=== PATIENT | female | born 1990 | race Caucasian/White ===

== ENCOUNTER → 2016-10-19 | Outpatient (CLI) | payer BC ==
[~2016-10-19] MED LIST: ACHD5005 PO; DCS100C PO; FERR-57 PO; IBUP-1773 PO; NFR150C PO
--- NOTE | 2016-10-19 18:00 | Diagnostic Imaging Report ---
INDICATION: . TECHNIQUE: Multiple real-time grayscale images were obtained over the gravid uterus. COMPARISON: None Number: One Presentation: Varies Placenta: Fundal, no placenta previa. Amniotic Fluid: Within normal limits Heart Rate: 153 bpm FINDINGS: The anatomic survey is limited. In particular, the four-chamber heart is not well visualized. However, intracranial contents are unremarkable. The spine is not well visualized and evaluated. The kidneys, urinary bladder, and three-vessel cord are present. The cervical length is 4.1 cm. A 3.2 x 1.6 x 3.5 cm ovoid hypoechoic lesion is seen within the anterior aspect of the uterus. This appears to persist throughout the examination. biometrics are symmetric. They are consistent with an estimated gestational age of 19 weeks and 6 days. Therefore, there is an estimated due date based on this examination of March 09, 2017. Findings are consistent with clinical dating. Biometrical measurements are as follows: Biparietal 4.44 cm, age 19 weeks 3 days. Head circumference 18.15 cm, age 20 weeks 4 days. Abdominal circumference 15.45 cm, age 20 weeks 5 days. Femur length 2.81 cm, age 18 weeks 5 days. Sonographic estimate age: 19 weeks 6 days. Sonographic estimated date of delivery: 03/09/2017. Estimated Weight: 312 gm (+/- 48 gm). LMP percentile: 81%. heart rate: 153 beats per minute. number: 1 of 1. IMPRESSION: Single live intrauterine at approximately 19 weeks and 6 days, with an GENESIS of March 09, 2017. These are consistent with clinical dates. No gross abnormalities are seen at this time. However, evaluation is limited. In particular, the spine, four-chamber heart, and cord insertion were not well seen secondary to positioning. Persistent hypoechoic lesion within the anterior aspect of the uterus, likely related to a fibroid. Contraction felt less likely as this appeared to persist throughout the exam. Dictated by: Dictated on workstation # [id number]
== END ==
LOC: RAD 16:48
PROVIDERS: ATTEND Obstetrics & Gynecology
DX: Z36 Encounter for antenatal screening of mother (principal); Z3A.19 19 weeks gestation of pregnancy
CPT/HCPCS: 76805

== ENCOUNTER 2016-11-27 18:40 | Outpatient (CLI) | payer BC ==
[~2016-11-27] VITALS: Ht 160 cm; Wt 104.4 kg
[2016-11-27 19:05] VITALS: BP 173/96
[2016-11-27 19:08] VITALS: BP 157/86
[2016-11-27 19:30] VITALS: BP 131/75
[2016-11-27 19:37] LABS: BILIRUBIN,URINE NEGATIVE (NEGATIVE); KETONES,URINE NEGATIVE (NEGATIVE); LEUKOCYTE ESTERASE ,URINE 1+ (NEGATIVE); NITRITE,URINE NEGATIVE (NEGATIVE); PH,URINE 8 (5-9); PROTEIN,URINE NEGATIVE (NEGATIVE); UROBILINOGEN,URINE NORMAL (NORMAL)
[2016-11-27] MEDS ORDERED: PREN-142 PO (19:42)
[2016-11-27 19:45] VITALS: BP 129/73
[2016-11-27] MEDS ORDERED: CEPH-507 PO (20:05)
--- NOTE | 2016-11-29 12:00 | Physician Query-Final Dx ---
GEORGI WILSON 11/29/16 12:00pm: Clinic Account Progress/Dx Physician Query: Please give diagnosis Date of Service Nov 27, 2016 at 18:40 OLEG RINCON DO 12/02/16 11:54am: Clinic Account Progress/Dx DIAGNOSIS: Diagnosis 25 week IUP Pelvic pain GEORGI WILSON Nov 29, 2016 12:00 pm OLEG RINCON DO Dec 02, 2016 11:54 am
== END 2016-11-27 20:16 | disposition home or self-care (01) ==
LOC: WSo 18:40 → LDRP 18:41 → WSo 20:16
PROVIDERS: ATTEND Obstetrics & Gynecology
DX: O99.89 Other specified diseases and conditions complicating pregnancy, childbirth and the puerperium (principal); R10.2 Pelvic and perineal pain; Z3A.25 25 weeks gestation of pregnancy
CPT/HCPCS: 81000; 87088; 99213

== ENCOUNTER → 2016-12-08 | Outpatient (CLI) | payer BC ==
[~2016-12-08] MED LIST changes: +CEPH-507 PO; +DOCU100C37 PO; +HYDR-3812 PO; +IBUP-1780 PO; +PREN-142 PO
--- NOTE | 2016-12-08 18:03 | Diagnostic Imaging Report ---
INDICATION: Evaluate heart and spine. TECHNIQUE: Multiple real-time grayscale images were obtained over the gravid uterus. COMPARISON is made to a study of 10/19/2016. FINDINGS: Limited examination reveals a mata intrauterine fetus in the cephalic presentation with a normal amount of amniotic fluid. The placenta is fundal without evidence of previa. cardiac activity is present with a rate 155 beats per minute. On the current examination, heart and spine reveal no abnormality. IMPRESSION: Reassessment of cardiac and spinal anatomy reveals no evidence of abnormality. Dictated by: Dictated on workstation # [id number]
== END ==
LOC: RAD 16:29
PROVIDERS: ATTEND Obstetrics & Gynecology
DX: Z36 Encounter for antenatal screening of mother (principal); Z3A.00 Weeks of gestation of pregnancy not specified
CPT/HCPCS: 76816

== ENCOUNTER 2017-02-23 10:22 | Outpatient (CLI) | payer BC ==
[~2017-02-23] VITALS: Ht 165.1 cm; Wt 112.0 kg
[~2017-02-23 10:22] MED LIST changes: -DOCU100C37 PO; -HYDR-3812 PO; -IBUP-1780 PO
[2017-02-23 10:47] VITALS: BP 124/82
== END 2017-02-23 10:50 | disposition home or self-care (01) ==
LOC: PREOP 10:22
PROVIDERS: ATTEND Obstetrics & Gynecology
DX: Z01.818 Encounter for other preprocedural examination (principal); O34.219 Maternal care for unspecified type scar from previous cesarean delivery; Z3A.00 Weeks of gestation of pregnancy not specified
CPT/HCPCS: 87081

== ENCOUNTER 2017-02-28 06:00 | Inpatient (IN) | payer BC ==
[~2017-02-28] VITALS: Ht 165.1 cm; Wt 111.6 kg
[~2017-02-28 06:00] MED LIST changes: +CITRIC ACID/SOB CIT (BICITRA) 30 ML UDC ONE; +FAMOTIDINE 20MG/2ML IV (PEPCID) ONE; +LACTATED RINGERS 2,000 ML IV ONE; +METOCLOPRAMIDE INJ 10 MG/2 ML (REGLAN) ONE; +ceFAZolin 2 GM/50 ML NS 50 ML ONE
[2017-02-28] MEDS ORDERED: LACTATED RINGERS 1,000 ML IV PRN (06:10)
--- OUTSIDE RECORDS SUMMARY | 2017-02-28 06:10 | XMS REPORT ---
Author Author KENNETH RICHARDSON [facility] eClinicalWorks Address Unknown Phone Unavailable Care Team Providers Care Thermal Intelligence Analyst Name Role Phone KENNETH RICHARDSON CP Unavailable Allergies, Adverse Reactions, Alerts Substance Reaction Event Type N.K.D.A. Info Not Available Non Drug Allergy Problems Problem Type Condition Code Onset Dates Condition Status Problem Unspecified breast screening V76.10 Active Problem General counseling for prescription of oral contraceptives V25.01 Active Problem Right sided abdominal pain R10.9 Active Problem Diffuse cystic mastopathy 610.1 Active Assessment Right sided abdominal pain R10.9 Active Problem Screening examination for venereal disease V74.5 Active Problem Screening for malignant neoplasm of the cervix V76.2 Active Medications Medication Code System Code Instructions Start Date End Date Status Dosage Multi Vitamin Daily [facility] [address] not defined Ortho Tri-Cyclen (28) [facility] [address]-68 0.18/0.215/0.25 mg-35 mcg (28) Dec 21, 2012 take 1 tablet by Oral route 1 time per day Procedures Procedure Coding System Code Date Office Visit, Est Pt., Level 3 CPT-4 68537 Nov 25, 2015 Vital Signs Date/Time: Nov 25, 2015 Cardiac Monitoring Heart Rate 76 bpm Weight 205.4 lbs Height 65 in BMI 34.18 Index Blood Pressure Diastolic 82 mmHg Blood Pressure Systolic 130 mmHg Results No Known Results Summary Purpose eClinicalWorks Submission
[2017-02-28 06:15] VITALS: BP 136/92
[2017-02-28] MEDS ORDERED: ceFAZolin 2 GM/50 ML NS 50 ML IV ONE (06:15)
[2017-02-28] MEDS ORDERED: FAMOTIDINE 20MG/2ML IV (PEPCID) IV ONE (06:15)
[2017-02-28] MEDS ORDERED: CITRIC ACID/SOB CIT (BICITRA) 30 ML UDC PO ONE (06:15)
[2017-02-28] MEDS ORDERED: METOCLOPRAMIDE INJ 10 MG/2 ML (REGLAN) IV ONE (06:15)
[2017-02-28] MEDS ORDERED: CATHETER FLUSH 10 ML SYR IV PRN (06:15)
[2017-02-28 06:35] LABS: BASOPHILS % (AUTO) 0 % (0-10); EOSINOPHILS # (AUTO) 0.1 10^3/uL (0.0-0.3); EOSINOPHILS % (AUTO) 1 % (0-10); LYMPHOCYTES # (AUTO) 2.5 X 10^3 (1.0-4.0); LYMPHOCYTES % (AUTO) 35 % (12-44); MEAN CORPUSCULAR HEMOGLOBIN 25 PG (25-34); MEAN CORPUSCULAR HGB CONC 32 G/DL (32-36); MEAN CORPUSCULAR VOLUME 77 FL (80-99); MEAN PLATELET VOLUME 10.1 FL (7.4-10.4); MONOCYTES # (AUTO) 0.5 X 10^3 (0.0-1.0); MONOCYTES % (AUTO) 8 % (0-12); NEUTROPHILS # (AUTO) 3.9 X 10^3 (1.8-7.8); NEUTROPHILS % (AUTO) 56 % (42-75); PLATELET COUNT 278 10^3/uL (130-400); RED CELL DISTRIBUTION WIDTH 16.4 % (10.0-14.5); WHITE BLOOD COUNT 7.1 10^3/uL (4.3-11.0)
[2017-02-28] MEDS ORDERED: fentaNYL INJECTION 100 MCG/2 ML AMP ONE (07:01)
[2017-02-28] MEDS ORDERED: morphine PF (DURAMORPH) 10 MG/10 ML AMP ONE (07:01)
[2017-02-28] MEDS ORDERED: INFLUENZA TRIvalent 2017-2018 0.5 ML/45 MCG SYR IM ONE (07:15)
--- NOTE | 2017-02-28 07:18 | History & Physical-OB ---
OB - Chief Complaint & HPI Date/Time Date of Admission: Date of Admission: Feb 28, 2017 at 6:00 am Time Seen by Provider: 07:10 Chief Complaint/History OB-Reason for Admission/Chief: Section Hx : 1 Hx Para: 0 Expected Date of Delivery: Mar 14, 2017 Gestational Age in Weeks: 38 Indication for : other (Hx of Extensive uterine myomectomy) Admission Nurse Assessment Rev: Yes History of Labs A pos Antibody neg RNI RPR NR HBsAg NR HIV NR GC neg GBS neg Allergies and Home Medications Allergies Coded Allergies: No Known Drug Allergies (Unverified , 11/27/16) Home Medications Vit No.124/Iron/FA 1 Each Tablet, 1 EACH PO DAILY, (Reported) OB - History Hx of Present Care: Yes Ultrasounds: Normal mid trimester US Obstetrical Complications: Other Medical Complications: None Delivery History Hx Blood Disorders: Yes (ANEMIA) Adverse Rxn to Tranfusion: No Patient Past Medical History Uterine myomectomy, hx of blood loss anemia Social History/Family History Recent Infectious Disease Expo: No Alcohol Use: Denies Use Recreational Drug Use: No Immunizations Tetanus Booster (TDap): Less than 5yrs OB - Admission Exam Physical Exam Vitals: Vital Signs 02/28/17 06:15 Temp 98.2 Pulse 95 Resp 18 B/P (MAP) 136/92 HEENT: NCAT Heart: Rhythm Normal Lungs: Clear Abdomen: Gravid Extremities: Normal Reflexes: Normal Heart Rate: 130's Accelerations: Accelerations Present Decelerations: No Decelerations Short Term Variability: Present Him Specialist Variability: Average (6-25) Contractions on Admission: >10 Minutes Apart Intensity: Mild Labs Laboratory Tests Test 02/28/17 06:20 Range/Units White Blood Count 7.1 4.3-11.0 10^3/uL Red Blood Count 4.80 4.35-5.85 10^6/uL Hemoglobin 11.9 11.5-16.0 G/DL Hematocrit 37 35-52 % Mean Corpuscular Volume 77 L 80-99 FL Mean Corpuscular Hemoglobin 25 25-34 PG Mean Corpuscular Hemoglobin Concent 32 32-36 G/DL Red Cell Distribution Width 16.4 H 10.0-14.5 % Platelet Count 278 130-400 10^3/uL Mean Platelet Volume 10.1 7.4-10.4 FL Neutrophils (%) (Auto) 56 42-75 % Lymphocytes (%) (Auto) 35 12-44 % Monocytes (%) (Auto) 8 0-12 % Eosinophils (%) (Auto) 1 0-10 % Basophils (%) (Auto) 0 0-10 % Neutrophils # (Auto) 3.9 1.8-7.8 X 10^3 Lymphocytes # (Auto) 2.5 1.0-4.0 X 10^3 Monocytes # (Auto) 0.5 0.0-1.0 X 10^3 Eosinophils # (Auto) 0.1 0.0-0.3 10^3/uL Basophils # (Auto) 0.0 0.0-0.1 10^3/uL OB - Assessment/Plan/Diagnosis Assessment Assessment: section Plan Plan: Section Discharge Diagnosis Diagnosis: 26 yo @ 38 weeks Hx of extensive uterine myomectomy BMI >35 GBS neg OLEG RINCON DO Feb 28, 2017 7:18 am
[2017-02-28] MEDS ORDERED: OXYTOCIN/NORMAL SALINE 500 ML IV SCH (07:28)
[2017-02-28] MEDS ORDERED: TETANUS,DIPTH,PERTUSS P/F (BOOSTRIX) 0.5 ML VIAL IM SCH (07:30)
[2017-02-28] MEDS ORDERED: ONDANSETRON 4 MG/2 ML (SDV) Z0FRAN IVP PRN (07:30)
[2017-02-28] MEDS ORDERED: MEASLES,MUMPS,RUBELLA 1 EA INJ SC SCH (07:30)
[2017-02-28] MEDS ORDERED: HYDROcodone/APAP 5 MG/325 MG (LORTAB) TAB PO PRN (07:30)
[2017-02-28] MEDS ORDERED: HYDROmorphone (DILAUDID) 2 MG/ML VIAL IVP PRN (07:30)
[2017-02-28] MEDS: KETOROLAC 30 MG/ML VIAL IVP SCH ×3 (08:15→19:06)
[2017-02-28] MEDS ORDERED: ONDANSETRON 4 MG/2 ML (SDV) Z0FRAN ONE (08:15)
[2017-02-28] MEDS ORDERED: PHENYLEPHRINE 100 MCG/ML 10 ML (ANESTHESIA) SYR ONE (08:15)
[2017-02-28] MEDS ORDERED: OXYTOCIN/NORMAL SALINE 1,000 ML IV ONE (08:15)
[2017-02-28] MEDS ORDERED: KETOROLAC 30 MG/ML VIAL ONE (08:15)
[2017-02-28] MEDS ORDERED: HYDR-3812 PO (08:31)
[2017-02-28] MEDS ORDERED: DOCU100C37 PO (08:31)
[2017-02-28] MEDS ORDERED: IBUP-1780 PO (08:31)
--- NOTE | 2017-02-28 08:33 | Discharge Inst-Women's Service ---
Discharge Inst-Women's Serv Depart Medication/Instructions New, Converted or Re-Newed RX: RX on Chart Consults/Follow Up Additional Follow Up: Yes Orders/Referrals Dr. Rincon in 7-10 days and in 6 weeks Activity Activity: Activity as Tolerated Driving Instructions: No Driving for 1 Week NO SMOKING: NO SMOKING Nothing Inside Vagina: No Douching, No [place], No Tampons Diet Discharge Diet: No Restrictions Symptoms to Report to : Bleeding Excessive, Pain Increased, Fever Over 101 Degrees F, Vaginal Bleeding Increase, Questions/Concerns For Any Problems or Questions: Contact Your Physician Skin/Wound Care Infection Signs and Symptoms: Increased Redness, Foul Odor of Wound, Increased Drainage, Skin Itchy or Has a Rash, Increased Swelling, Temperature Above 101 F Operative Area Clean and Dry: Keep Incision Clean/Dry Stitches/Kellee/Dermabond: Dermabond, Care of Stitches Bathing Instructions: Shower (x 2 weeks) OLEG RINCON DO Feb 28, 2017 8:33 am
[2017-02-28] MEDS: DOCUSATE SODIUM 100 MG (COLACE) CAP PO SCH (10:55)
[2017-02-28 10:57] VITALS: BP 124/79
[2017-02-28 13:49] VITALS: BP 131/86
[2017-02-28] MEDS ORDERED: CATHETER FLUSH 10 ML SYR IV SCH (14:00)
--- NOTE | 2017-02-28 14:21 | OPERATIVE REPORT ---
DATE OF SERVICE: PREOPERATIVE DIAGNOSES: 1. A 26-year-old G1, P0 at 38 weeks. 2. Previous extensive uterine myomectomy. 3. BMI of 35. POSTOPERATIVE DIAGNOSES: 1. A 26-year-old G1, P0 at 38 weeks. 2. Previous extensive uterine myomectomy. 3. BMI of 35. PROCEDURE: Primary low transverse section with uterine myomectomy and lysis of adhesions. SURGEON: Derek Rincon D.O. CONTINUUM OF CARE MANAGER: LELIA Lazaro. ANESTHESIA: Spinal. EBL: 1100 mL. FLUIDS: 1700 mL of lactate Ringer solution. URINE: 200 mL clear at the end of the procedure. FINDINGS: Is a live male weighing 7 pounds 14 ounces, Apgars of 8 and 9. A grossly abnormal size uterus with multiple fibroids, intramural submucosal and subserosal as well as pedunculated dense adhesions of the vesicouterine peritoneum to the lower uterine segment and the anterior uterine wall. SPECIMEN SENT: Was placenta and submucosal and fundal pedunculated uterine fibroid. INDICATION FOR PROCEDURE: This is a 26-year-old female is a patient several years ago that I had previously performed an extensive uterine myomectomy due to chronic blood loss anemia. She was counseled at that time about need for a if should be achieved in her lifetime. The patient did achieve without difficulty and was counseled throughout the about labor precautions, uterine rupture, and need for primary . Risks of the procedure were discussed with the patient throughout her and in the preoperative area including risk of bleeding, infection, risk of damage to surrounding structures including but not limited to bowel, bladder, ureter, kidneys, loss of fertility and/or sterilization as well as need for blood transfusion, risk from anesthesia and even . After everything was discussed with the patient in detail, consent was obtained preoperatively and the patient was taken to the operating room. OPERATIVE ROOM IN DETAIL: Once in the operating room, spinal anesthesia was found to be adequate, placed in supine position with a leftward tilt, prepped and draped in normal sterile fashion. A Pfannenstiel skin incision was made through the previously existing incision using a knife and carried to underlying fascia using Bovie cautery. The fascial incision extended laterally using Bovie cautery. The superior aspect of the fascial incision was then grasped with Leila clamps, tented up and dissected off the underlying rectus muscles. The inferior aspect of the fascial incision was then grasped with Leila clamps and the upper dissected off the rectus muscle. Rectus muscle dissected down the midline using Manning scissors and this allows me to enter the peritoneum. I have to do so extremely cephalad to avoid dense lower uterine segment adhesions. Once the peritoneal access was achieved, I stretched the incision and have to take down some anterior uterine wall adhesions that are both dense and filmy. Using Metzenbaum scissors, I did this with care to stay away from the bladder. Once these were taken down, I then placed the Daniel ring retractor and the peritoneal incision which offers excellent lateral sidewall retraction. I made an incision through the lower uterine segment using knife and carried down until I am able to see membranes at which point I extended the uterine incision laterally and superiorly using bandage scissors. Clear fluid was noted at time of rupture membranes which happens iatrogenically and extension of the uterine incision. The infant was found in the vertex presentation. I elevated the infant's head up to incision which is occiput posterior at the time of elevation. Due to the fibroids in the uterus and the size of the patient I am unable to deliver the 's head with gentle fundal pressure. I therefore called for a Kiwi suction extractor. I placed it on the midsagittal suture line of the infant, applied 500 mmHg and gently extended the infant's head to the incision, which offers itself up to delivery at that point with retraction of the suction which point I released the suction and bulb suction of the infant's nose and oropharynx. I then delivered the anterior, posterior shoulders. Infant is then brought to the operative field where the cord was doubly clamped and cut and handed off to waiting nonpediatric team. Cord blood was collected, 3-vessel cord with intact placenta was delivered spontaneously thereafter. IV Pitocin was initiated to facilitate uterine contraction. Uterine fundus became firmer with bimanual massage. The uterus was exteriorized and cleared of all endometrial clots and debris. There is a submucosal fibroid that was peeled off the endometrial wall. There is not an extensive amount of bleeding from its insertion site; therefore I leave it be. I then proceeded with closing the uterine incision using 0 Vicryl suture in running Lock fashion. A second layer of 0 Vicryl suture was placed to imbricate the incision. A third layer of 0 Monocryl was placed to reapproximate the thickness of the uterine wall after which there was no active bleeding noted from any dissection planes. I examined the uterus and there was a pedunculated fibroid at the uterine fundus that is inhibiting me from placing the uterus back within the pelvis. I placed an 0 Vicryl suture around the stalk of the pedunculated fibroid ligating it and then amputated using monopolar after which there was no bleeding noted from its removal site. This was also sent as a pedunculated fundal fibroid. I am able to place the uterus back within the pelvis. The pelvis was copiously irrigated using normal saline. Once again no active bleeding noted from my dissection planes, but there is some oozing from areas of adhesion takedown. I placed a Surgicel over these planes of oozing. I placed Interceed over the lower uterine segment up to the middle anterior uterus to prevent postoperative adhesion formation. I then closed the peritoneum using 3-0 Vicryl in a running fashion. The rectus muscle reapproximated using 3-0 Vicryl suture in interrupted fashion. The fascia reapproximated with 0 Vicryl suture in running fashion. The subcutaneous tissue was reapproximated using 3-0 plain. Interrupted subcutaneous stitches and skin reapproximated using 4-0 Monocryl running subcuticular. Dermabond was applied to the incision and a sterile dressing with adhesive white tape. Two grams Ancef given preoperatively for infection prophylaxis. The patient tolerated the procedure well and sent to recovery in stable condition. Lap and sponge count was correct at the end of the procedures, instruments counts correct as well. Job ID: [id number] DocumentID: [id number] Dictated Date: 02/28/2017 08:40:18 Scientific Helper Date: 02/28/2017 14:20:23 Dictated By: DEREK RINCON DO
[2017-02-28 17:45] VITALS: BP 129/83
[2017-02-28] MEDS: LACTATED RINGERS 1,000 ML IV SCH (17:52)
[2017-02-28 21:30] VITALS: BP 129/72
[2017-03-01] MEDS: KETOROLAC 30 MG/ML VIAL IVP SCH (01:15)
[2017-03-01] MEDS: DOCUSATE SODIUM 100 MG (COLACE) CAP PO SCH ×3 (01:15→20:06)
[2017-03-01] MEDS: LACTATED RINGERS 1,000 ML IV SCH (01:16)
[2017-03-01 01:20] VITALS: BP 124/78
[2017-03-01 05:05] VITALS: BP 127/81
[2017-03-01] MEDS ORDERED: IBUPROFEN 600 MG (MOTRIN) TAB PO ONE (06:30)
[2017-03-01] MEDS ORDERED: IBUPROFEN 800 MG (MOTRIN) TAB PO ONE (06:32)
[2017-03-01] MEDS: IBUPROFEN 800 MG (MOTRIN) TAB PO SCH ×3 (06:42→20:06)
[2017-03-01 06:49] LABS: BASOPHILS % (AUTO) 0 % (0-10); EOSINOPHILS % (AUTO) 0 % (0-10); LYMPHOCYTES # (AUTO) 1.6 X 10^3 (1.0-4.0); LYMPHOCYTES % (AUTO) 15 % (12-44); MEAN CORPUSCULAR HEMOGLOBIN 25 PG (25-34); MEAN CORPUSCULAR HGB CONC 32 G/DL (32-36); MEAN CORPUSCULAR VOLUME 78 FL (80-99); MEAN PLATELET VOLUME 10.1 FL (7.4-10.4); MONOCYTES # (AUTO) 0.8 X 10^3 (0.0-1.0); MONOCYTES % (AUTO) 7 % (0-12); NEUTROPHILS # (AUTO) 8.3 X 10^3 (1.8-7.8); NEUTROPHILS % (AUTO) 77 % (42-75); PLATELET COUNT 202 10^3/uL (130-400); RED BLOOD COUNT 3.39 10^6/uL (4.35-5.85); RED CELL DISTRIBUTION WIDTH 16.4 % (10.0-14.5); WHITE BLOOD COUNT 10.7 10^3/uL (4.3-11.0)
--- NOTE | 2017-03-01 08:20 | Progress Note-Standard ---
Standard Progress Note Progress Notes/Assess & Plan Date Seen by Provider: Mar 01, 2017 Time Seen by Provider: 08:12 Progress/Assessment & Plan Patient doing well no concerns voiced. Pain well controlled, lochia light, ambulating and yet to void since catheter removed this morning. Vital Sign - Last 24 Hours 02/28/17 02/28/17 02/28/17 02/28/17 10:57 13:49 17:45 21:30 Temp 98.2 97.7 97.8 97.7 Pulse 79 79 96 94 Resp 18 18 18 18 B/P (MAP) 124/79 131/86 129/83 129/72 Pulse Ox 95 99 96 96 O2 Delivery Room Air Room Air Room Air Room Air 03/01/17 03/01/17 01:20 05:05 Temp 99.6 99.3 Pulse 98 105 Resp 18 18 B/P (MAP) 124/78 127/81 Pulse Ox 95 96 O2 Delivery Room Air Room Air Incision: c/d/i Laboratory Tests Test 03/01/17 06:34 Range/Units White Blood Count 10.7 4.3-11.0 10^3/uL Red Blood Count 3.39 L 4.35-5.85 10^6/uL Hemoglobin 8.4 #L 11.5-16.0 G/DL Hematocrit 26 L 35-52 % Mean Corpuscular Volume 78 L 80-99 FL Mean Corpuscular Hemoglobin 25 25-34 PG Mean Corpuscular Hemoglobin Concent 32 32-36 G/DL Red Cell Distribution Width 16.4 H 10.0-14.5 % Platelet Count 202 130-400 10^3/uL Mean Platelet Volume 10.1 7.4-10.4 FL Neutrophils (%) (Auto) 77 H 42-75 % Lymphocytes (%) (Auto) 15 12-44 % Monocytes (%) (Auto) 7 0-12 % Eosinophils (%) (Auto) 0 0-10 % Basophils (%) (Auto) 0 0-10 % Neutrophils # (Auto) 8.3 H 1.8-7.8 X 10^3 Lymphocytes # (Auto) 1.6 1.0-4.0 X 10^3 Monocytes # (Auto) 0.8 0.0-1.0 X 10^3 Eosinophils # (Auto) 0.0 0.0-0.3 10^3/uL Basophils # (Auto) 0.0 0.0-0.1 10^3/uL Diagnosis: POD PLTCS with myomectomy Acute blood loss anemia P: Replace iron Encourage ambulation Continue routine PO care Anticipate dc tomorrow OLEG RINCON DO Mar 01, 2017 08:20
[2017-03-01 09:22] VITALS: BP 123/80
[2017-03-01] MEDS: FERROUS SULF 325 MG (IRON) TAB PO SCH ×2 (09:26→18:37)
--- NOTE | 2017-03-01 14:32 | Anesthesia-Regional Post-Op ---
Regional Patient Condition Mental Status: Alert, Oriented x3 Circulation: Same as Pre-Op Headache: Absent Sensation: Full Recovery Motor Block: Absent Post Op Complications Complications None Follow Up Care/Instructions Patient Instructions None needed. Anesthesia/Patient Condition Patient is doing well, no complaints, stable vital signs, no apparent adverse anesthesia problems. No complications reported per nursing. CHUYITA THOMASON CRNA Mar 01, 2017 14:32
[2017-03-01 16:11] VITALS: BP 120/76
[2017-03-01 20:00] VITALS: BP 139/88
[2017-03-01 22:00] VITALS: BP 139/88
[2017-03-02] MEDS: IBUPROFEN 800 MG (MOTRIN) TAB PO SCH ×2 (02:15→07:53)
[2017-03-02 04:03] VITALS: BP 117/81
[2017-03-02] MEDS: FERROUS SULF 325 MG (IRON) TAB PO SCH (05:57)
[2017-03-02 07:43] VITALS: BP 122/79
--- NOTE | 2017-03-02 10:26 | Progress Note-Standard ---
Standard Progress Note Progress Notes/Assess & Plan Date Seen by Provider: Mar 02, 2017 Time Seen by Provider: 08:15 Progress/Assessment & Plan Patient doing well no concerns voiced. Pain well controlled, lochia light, ambulating and voiding freely. Vital Sign - Last 24 Hours 03/01/17 03/01/17 03/02/17 03/02/17 16:11 22:00 04:03 07:43 Temp 99.3 97.2 98.2 98.8 Pulse 103 119 88 106 Resp 18 18 17 18 B/P (MAP) 120/76 139/88 117/81 122/79 Pulse Ox 97 98 99 O2 Delivery Room Air Room Air Room Air Incision: c/d/i Diagnosis: POD 2 PLTCS with myomectomy Acute blood loss anemia P: Replace iron Encourage ambulation Continue routine PO care Anticipate dc today OLEG RINCON DO Mar 02, 2017 10:26 am
== END 2017-03-02 11:45 | disposition home or self-care (01) | DRG 765 ==
LOC: LDRP 06:00
PROVIDERS: ADMIT Obstetrics & Gynecology; ATTEND Obstetrics & Gynecology
PROC: 0UB90ZZ Excision of Uterus, Open Approach (ICD-10-PCS; 2017-02-28)
PROC: 10D00Z1 Extraction of Products of Conception, Low, Open Approach (ICD-10-PCS; principal; 2017-02-28 07:22)
DX: O34.29 Maternal care due to uterine scar from other previous surgery (principal); O34.13 Maternal care for benign tumor of corpus uteri, third trimester; D25.1 Intramural leiomyoma of uterus; D25.0 Submucous leiomyoma of uterus; D25.2 Subserosal leiomyoma of uterus; O90.81 Anemia of the puerperium; D62 Acute posthemorrhagic anemia; Z68.35 Body mass index [BMI] 35.0-35.9, adult; Z3A.38 38 weeks gestation of pregnancy; Z37.0 Single live birth
CPT/HCPCS: 36415; 85025; 86850; 86900; 86901; 88305; 88307; 94664

== ENCOUNTER → 2017-09-12 | Outpatient (CLI) | payer BC, OTHER ==
[~2017-09-12] MED LIST changes: -CITRIC ACID/SOB CIT (BICITRA) 30 ML UDC ONE; +DOCU100C37 PO; -FAMOTIDINE 20MG/2ML IV (PEPCID) ONE; +IBUP-1780 PO; -LACTATED RINGERS 2,000 ML IV ONE; -METOCLOPRAMIDE INJ 10 MG/2 ML (REGLAN) ONE; -ceFAZolin 2 GM/50 ML NS 50 ML ONE
--- NOTE | 2017-09-12 11:37 | Diagnostic Imaging Report ---
Indication: Pelvic pain. Technique: Multiple real-time grayscale images were obtained of the pelvis in various projections both transabdominal and endovaginally. Findings: Use measures 9.4 x 5 x 4.5 cm. This fibroid in the right aspect of the uterus measuring 2.8 x 2.6 cm. There is a fibroid on the left measuring 5.3 x 4.2 x 4.5 cm. Endometrial thickness is 7 mm. Both ovaries are normal in size and morphology and demonstrate normal blood flow. There are no adnexal masses. No free pelvic fluid. Impression: Fibroid uterus, otherwise unremarkable pelvic ultrasound. Dictated by: Dictated on workstation # [id number]
== END ==
LOC: RAD 09:54
PROVIDERS: ATTEND Obstetrics & Gynecology
DX: D25.1 Intramural leiomyoma of uterus (principal)
CPT/HCPCS: 76830; 76856

== ENCOUNTER → 2018-11-22 | Outpatient (CLI) | payer BC ==
--- NOTE | 2018-11-22 12:13 | Diagnostic Imaging Report ---
PROCEDURE: US Non-ob pelvis comp/trans. TECHNIQUE: Multiple realtime grayscale images were obtained of the pelvis in various projections endovaginally. Transabdominal imaging was also performed. INDICATION: Uterine fibroids, followup. COMPARISON: Correlation is made with prior ultrasound from 09/12/2017. FINDINGS: The uterus measures 10.0 x 8.8 x 5.2 cm. Endometrium is 13 mm in thickness. Left uterine fibroid measures 3.8 x 3.8 x 3.3 cm compared with 5.3 x 4.2 x 4.5 cm. Right fibroid measures 1.8 x 1.5 x 1.8 cm compared with 2.6 x 2.8 cm. The right ovary was not visualized. Left ovary measures 5.8 x 4.8 x 3.5 cm and contains a complex cyst measuring 3.4 x 2.1 x 3.7 cm. There is blood flow to the left ovary. There is a small amount of free fluid adjacent to left ovary. IMPRESSION: 1. Overall mild decrease in size of uterine fibroids when compared with prior ultrasound from 09/12/2017. 2. 3.7 cm hemorrhagic left ovarian cyst. Dictated by: Dictated on workstation # [id number]
== END ==
LOC: RAD 09:34
PROVIDERS: ATTEND Obstetrics & Gynecology
DX: D25.9 Leiomyoma of uterus, unspecified (principal); N83.202 Unspecified ovarian cyst, left side
CPT/HCPCS: 76830; 76856

== ENCOUNTER → 2019-03-19 | Outpatient (CLI) | payer BC ==
--- NOTE | 2019-03-19 12:42 | Diagnostic Imaging Report ---
PROCEDURE: US Non-ob pelvis comp/trans. TECHNIQUE: Multiple realtime grayscale images were obtained of the pelvis in various projections endovaginally. Transabdominal imaging was also performed. INDICATION: Ovarian cyst. COMPARISON: Comparison is made with prior examination of 11/22/2018. FINDINGS: The uterus measures 10.1 x 8.9 x 5.7 cm. Endometrial thickness is 1.3 cm. There is some fluid within the endometrium. There is a fibroid in the right uterus measuring 1.9 cm. There is fibroid in the left uterus measuring 3.7 cm. Both ovaries are normal in size and morphology and demonstrate normal blood flow. There is a 2 cm left ovarian cyst. There are no other adnexal masses. There is no free pelvic fluid. IMPRESSION: Fibroid uterus. Thickening of the endometrium presumably reflecting the proliferative phase of the patient's menstrual cycle. Recommend clinical correlation. 2 cm left ovarian cyst. Dictated by: Dictated on workstation # [id number]
== END ==
LOC: RAD 09:53
PROVIDERS: ATTEND Obstetrics & Gynecology
DX: N83.292 Other ovarian cyst, left side (principal)
CPT/HCPCS: 76830; 76856

== ENCOUNTER → 2019-07-07 | Outpatient (CLI) | payer BC | LOC: LAB 14:00 | PROVIDERS: ATTEND Obstetrics & Gynecology | DX: Z36.89 Encounter for other specified antenatal screening (principal) | CPT/HCPCS: 36415; 84702 ==

== ENCOUNTER → 2019-10-31 | Outpatient (CLI) | payer BC ==
--- NOTE | 2019-10-31 11:04 | Diagnostic Imaging Report ---
INDICATION: Anatomy scan. TECHNIQUE: Multiple real-time grayscale images were obtained over the gravid uterus. COMPARISON: None FINDINGS: There is a single live fetus in a breech presentation. heart rate was recorded at 167 bpm. Placenta is posterior. Amniotic fluid index is 14.2 cm. survey is limited due to position and maternal body habitus. kidneys, bladder, posterior fossa and cord and cord insertion are limited. stomach is unremarkable. There is a four-chamber heart. spine is unremarkable. Biometrical measurements are as follows: Biparietal 4.99 cm, age 21 weeks 1 days. Head circumference 18.27 cm, age 20 weeks 5 days. Abdominal circumference 17.25 cm, age 22 weeks 2 days. Femur length 3.36 cm, age 20 weeks 4 days. Sonographic estimate age: 21 weeks 2 days. Sonographic estimated date of delivery: 03/10/2020. Estimated Weight: 418 gm (+/- 61 gm). LMP percentile: 80%. heart rate: 167 beats per minute. number: 1 of 1. IMPRESSION: Single live IUP 21 weeks 2 days gestational age with estimated date of confinement sonographically of 03/10/2020. survey is limited, as described. Follow-up could be performed. Dictated by: Dictated on workstation # [id number]
== END ==
LOC: RAD 09:24
PROVIDERS: ATTEND Obstetrics & Gynecology
DX: Z34.03 Encounter for supervision of normal first pregnancy, third trimester (principal); Z3A.21 21 weeks gestation of pregnancy
CPT/HCPCS: 76805

== ENCOUNTER → 2019-12-29 | Outpatient (CLI) | payer BC | LOC: LAB 08:54 | PROVIDERS: ATTEND Obstetrics & Gynecology | DX: O99.810 Abnormal glucose complicating pregnancy (principal); Z3A.00 Weeks of gestation of pregnancy not specified | CPT/HCPCS: 36415; 82951; 82952; 82962 ==

== ENCOUNTER 2020-02-06 15:30 | Outpatient (CLI) | payer BC ==
[~2020-02-06] VITALS: Ht 165 cm; Wt 117.8 kg
--- NOTE | 2020-02-06 15:30 | NUR ---
DIAMOND PATTERSON presented to unit via AMB from HOME, accompanied by SPOUSE, with c/o ABDOMINAL TIGHTNESS. DIAMOND PATTERSON weighed, gowned, voided, and to bed. 1552 EF and TOCO applied, VS taken. DIAMOND PATTERSON oriented to bed controls, call light, TV, heat, and A/C controls.
[2020-02-06 16:01] VITALS: BP 147/76
[2020-02-06 16:30] VITALS: BP 147/76
--- NOTE | 2020-02-06 16:30 | NUR ---
AMNIO SWAB NEGATIVE. SVE BY SALMA ARTEAGA. UNABLE TO REACH POSTERIOR CERVIX.
[2020-02-06 16:45] VITALS: BP 130/80
[2020-02-06 16:50] VITALS: BP 147/76
--- NOTE | 2020-02-06 16:53 | NUR ---
DR. BANUELOS NOTIFIED OF PT'S ARRIVAL AND C/O CTXS OFF AND ON SINCE 1000 TODAY. INFORMED OF FHR TRACING, REACTIVE NST, OCC VARIABLES, AND 2 CTXS NOTED 21 MINUTES APART. ORDER TO DISMISS.
[2020-02-06 17:15] VITALS: BP 147/76
--- NOTE | 2020-02-06 17:15 | NUR ---
DISCHARGE INSTRUCTIONS REVIEWED WITH COPY TO PT. STATES UNDERSTANDING OF ALL INSTRUCTIONS AND NEED TO F/U SCHEDULED AND NEEDED. DISMISSED AMB FROM WS IN STABLE CONDITION ACC BY SPOUSE.
--- NOTE | 2020-02-07 08:19 | Physician Query-Final Dx ---
TORI MOSER 02/07/20 0819: Clinic Account Progress/Dx Physician Query: Please give diagnosis Please include # weeks gestation Date of Service Feb 06, 2020 at 15:30 CRYSTAL BANUELOS MD 02/07/20 0924: Clinic Account Progress/Dx DIAGNOSIS: Diagnosis 34 weeks gestation false labor TORI MOSER Feb 07, 2020 08:19 CRYSTAL BANUELOS MD Feb 07, 2020 09:24
== END 2020-02-06 17:15 | disposition home or self-care (01) ==
LOC: WSo 15:30 → LDRP 15:41 → WSo 17:15
PROVIDERS: ATTEND Obstetrics & Gynecology
DX: O47.03 False labor before 37 completed weeks of gestation, third trimester (principal); Z3A.34 34 weeks gestation of pregnancy
CPT/HCPCS: 99213

== ENCOUNTER 2020-02-27 05:32 | Outpatient (RCR) | payer BC ==
[~2020-02-27] VITALS: Ht 165.1 cm; Wt 118.2 kg
[2020-02-29] MEDS ORDERED: DCS100C PO (08:26)
[2020-02-29] MEDS ORDERED: IBUP-844 PO (08:26)
[2020-02-29] MEDS ORDERED: ACHD5005 PO (08:26)
== END 2020-02-27 09:38 | disposition home or self-care (01) ==
LOC: PREOP 05:32
PROVIDERS: ATTEND Obstetrics & Gynecology
DX: Z01.812 Encounter for preprocedural laboratory examination (principal); Z20.828 Contact with and (suspected) exposure to other viral communicable diseases
CPT/HCPCS: 87635

== ENCOUNTER 2020-02-29 01:55 | Inpatient (IN) | payer BC ==
[~2020-02-29] VITALS: Ht 165.1 cm; Wt 117.8 kg
[2020-02-29] VITALS (11 sets, daily range): BP systolic 127–138; BP diastolic 66–101
[2020-02-29] MEDS ORDERED: LACTATED RINGERS 1,000 ML IV PRN (06:30)
[2020-02-29] MEDS ORDERED: CATHETER FLUSH 10 ML SYR IV PRN (06:30)
[2020-02-29] MEDS ORDERED: METOCLOPRAMIDE INJ 10 MG/2 ML (REGLAN) IV ONE (06:30)
[2020-02-29] MEDS ORDERED: CITRIC ACID/SOB CIT (BICITRA) 30 ML UDC PO ONE (06:30)
[2020-02-29] MEDS ORDERED: ceFAZolin 2 GM IV Premixed 50 ML IV ONE (06:45)
[2020-02-29 07:12] LABS: BASOPHILS # (AUTO) 0.1 10^3/uL (0.0-0.1); BASOPHILS % (AUTO) 1 % (0-10); EOSINOPHILS # (AUTO) 0.1 10^3/uL (0.0-0.3); EOSINOPHILS % (AUTO) 1 % (0-10); HEMATOCRIT 38 % (35-52); HEMOGLOBIN 12.2 g/dL (11.5-16.0); LYMPHOCYTES # (AUTO) 1.9 10^3/uL (1.0-4.0); LYMPHOCYTES % (AUTO) 26 % (12-44); MEAN CORPUSCULAR HEMOGLOBIN 25 pg (25-34); MEAN CORPUSCULAR HGB CONC 32 g/dL (32-36); MEAN CORPUSCULAR VOLUME 78 fL (80-99); MONOCYTES # (AUTO) 0.5 10^3/uL (0.0-1.0); MONOCYTES % (AUTO) 6 % (0-12); NEUTROPHILS # (AUTO) 4.9 10^3/uL (1.8-7.8); NEUTROPHILS % (AUTO) 66 % (42-75); PLATELET COUNT 286 10^3/uL (130-400); WHITE BLOOD COUNT 7.4 10^3/uL (4.3-11.0)
[2020-02-29] MEDS ORDERED: FAMOTIDINE 20MG/2ML IV (PEPCID) ONE (07:25)
[2020-02-29] MEDS: LACTATED RINGERS 1,000 ML IV PRN ×2 (07:38→09:17)
[2020-02-29] MEDS ORDERED: OXYTOCIN PRE-MIX DRIP 500 ML IV SCH (08:13)
--- NOTE | 2020-02-29 08:13 | History & Physical-OB ---
OB - Chief Complaint & HPI Date/Time Date of Admission: Date of Admission: Feb 29, 2020 at 06:15 Date seen by a Provider: Feb 29, 2020 Time Seen by a Provider: 08:05 Chief Complaint/History OB-Reason for Admission/Chief: Section Hx : 3 Hx Para: 1 Expected Date of Delivery: Mar 14, 2020 Gestational Age in Weeks: 38 Gestational Age in Days: 0 Indication for : desires repeat Other reason for admission: Repeat , secondary to extensive transfundal surgery Admission Nurse Assessment Rev: Yes Allergies and Home Medications Allergies Coded Allergies: No Known Drug Allergies (Unverified , 11/27/16) Home Medications Vit No.124/Iron/FA 1 Each Tablet, 1 EACH PO DAILY, (Reported) Patient Home Medication List Home Medication List Reviewed: Yes OB - History Hx of Present Care: Yes Ultrasounds: Normal mid trimester US Obstetrical Complications: None Medical Complications: None Delivery History Hx Blood Disorders: Yes (ANEMIA) Adverse Rxn to Tranfusion: No Patient Past Medical History Uterine myomectomy, hx of blood loss anemia Social History/Family History 2nd Hand Smoke Exposure: Yes Immunizations Tetanus Booster (TDap): Less than 5yrs OB - Admission Exam Physical Exam Vitals: Vital Signs 02/29/20 06:40 Pulse 86 Resp 18 B/P (MAP) 127/84 (98) Pulse Ox 98 O2 Delivery Room Air HEENT: NCAT Heart: Rhythm Normal Lungs: Clear Abdomen: Gravid Extremities: Normal Reflexes: Normal Heart Rate: 130's Accelerations: Accelerations Present Decelerations: No Decelerations Short Term Variability: Present Intermediate Variability: Average (6-25) Contractions on Admission: 6-10 Minutes Apart Intensity: Mild Labs Laboratory Tests Test 02/29/20 06:45 Range/Units White Blood Count 7.4 4.3-11.0 10^3/uL Red Blood Count 4.80 3.80-5.11 10^6/uL Hemoglobin 12.2 11.5-16.0 g/dL Hematocrit 38 35-52 % Mean Corpuscular Volume 78 L 80-99 fL Mean Corpuscular Hemoglobin 25 25-34 pg Mean Corpuscular Hemoglobin Concent 32 32-36 g/dL Red Cell Distribution Width 17.9 H 10.0-14.5 % Platelet Count 286 130-400 10^3/uL Mean Platelet Volume 10.0 9.0-12.2 fL Immature Granulocyte % (Auto) 0 % Neutrophils (%) (Auto) 66 42-75 % Lymphocytes (%) (Auto) 26 12-44 % Monocytes (%) (Auto) 6 0-12 % Eosinophils (%) (Auto) 1 0-10 % Basophils (%) (Auto) 1 0-10 % Neutrophils # (Auto) 4.9 1.8-7.8 10^3/uL Lymphocytes # (Auto) 1.9 1.0-4.0 10^3/uL Monocytes # (Auto) 0.5 0.0-1.0 10^3/uL Eosinophils # (Auto) 0.1 0.0-0.3 10^3/uL Basophils # (Auto) 0.1 0.0-0.1 10^3/uL Immature Granulocyte # (Auto) 0.0 0.0-0.1 10^3/uL OB - Assessment/Plan/Diagnosis Assessment Assessment: section Admission Dx 29 yo @ 38 weeks Previous Hx of extensive uterine myomectomy GBS neg Admission Status: Inpatient Order (span 2 midnights) Reason for Inpatient Admission: Repeat Plan Plan: Section OLEG RINCON DO Feb 29, 2020 08:13
[2020-02-29] MEDS ORDERED: MEASLES,MUMPS,RUBELLA 1 EA INJ SC SCH (08:15)
[2020-02-29] MEDS ORDERED: TETANUS,DIPTH,PERTUSS P/F (BOOSTRIX) 0.5 ML VIAL IM SCH (08:15)
[2020-02-29] MEDS ORDERED: ONDANSETRON 4 MG/2 ML (SDV) Z0FRAN IVP PRN (08:15)
--- NOTE | 2020-02-29 08:18 | Discharge Inst-Women's Service ---
Discharge Inst-Women's Serv Depart Medication/Instructions New, Converted or Re-Newed RX: RX on Chart Final Diagnosis POD 2 RLTCS Problems Reviewed?: Yes Consults/Follow Up Additional Follow Up: Yes Orders/Referrals Dr. Hassan/Анна in 7-10 days, and in 6 weeks Activity Activity: Activity as Tolerated Driving Instructions: No Driving for 1 Week NO SMOKING: NO SMOKING Nothing Inside Vagina: No Douching, No [place], No Tampons Diet Discharge Diet: No Restrictions Symptoms to Report to : Bleeding Excessive, Pain Increased, Fever Over 101 Degrees F, Vaginal Bleeding Increase, Questions/Concerns For Any Problems or Questions: Contact Your Physician Skin/Wound Care Infection Signs and Symptoms: Increased Redness, Foul Odor of Wound, Increased Drainage, Skin Itchy or Has a Rash, Increased Swelling, Temperature Above 101 F Operative Area Clean and Dry: Keep Incision Clean/Dry Stitches/Yeso/Dermabond: Dermabond, Care of Stitches Bathing Instructions: OLEG Chavez DO Feb 29, 2020 08:18
[2020-02-29] MEDS ORDERED: ACHD5005 PO (08:26)
[2020-02-29] MEDS ORDERED: IBUP-844 PO (08:26)
[2020-02-29] MEDS ORDERED: DCS100C PO (08:26)
[2020-02-29] MEDS ORDERED: OXYTOCIN PRE-MIX DRIP 1,000 ML IV ONE (08:43)
[2020-02-29] MEDS ORDERED: ceFAZolin 2 GM IV Premixed 50 ML ONE (08:43)
[2020-02-29] MEDS ORDERED: fentaNYL INJECTION 100 MCG/2 ML AMP ONE (08:43)
[2020-02-29] MEDS ORDERED: ONDANSETRON 4 MG/2 ML (SDV) Z0FRAN ONE (09:25)
[2020-02-29] MEDS ORDERED: BUPIVACAINE 0.5% 30 ML (SENSORCAINE) VIAL ONE (09:45)
[2020-02-29] MEDS ORDERED: PHENYLEPHRINE 100 MCG/ML 10 ML (ANESTHESIA) SYR ONE (09:49)
--- NOTE | 2020-02-29 11:35 | NUR ---
Received from [facility] following repeat . Rates pain 0. Scant vaginal lochia. Fundus firm. u/1. Report from Verónica Degroot RN
[2020-02-29] MEDS: KETOROLAC 30 MG/ML VIAL IV SCH ×2 (12:10→17:55)
[2020-02-29] MEDS: METOCLOPRAMIDE 10 MG (REGLAN) TAB PO SCH ×2 (12:14→17:55)
[2020-02-29] MEDS ORDERED: CATHETER FLUSH 10 ML SYR IV SCH (14:00)
--- NOTE | 2020-02-29 14:30 | NUR ---
Pad changed with moderate rubra lochia. Marta care done.
[2020-02-29] MEDS: HYDROcodone/APAP 5 MG/325 MG (LORTAB) TAB PO PRN ×2 (15:23→19:57)
--- NOTE | 2020-02-29 18:04 | OPERATIVE REPORT ---
DATE OF SERVICE: PREOPERATIVE DIAGNOSES: 1. A 29-year-old G3, P1 at 38 weeks gestation. 2. Previous section. 3. History of extensive transfundal surgery and multiple myomectomy. POSTOPERATIVE DIAGNOSES: 1. A 29-year-old G3, P1 at 38 weeks gestation. 2. Previous section. 3. History of extensive transfundal surgery and multiple myomectomy. PROCEDURE: Repeat low transverse section. SURGEON: Derek Hassan DO SAMPLE SEWER: Анна Hughes DNP, who was necessary for manipulation and retraction throughout the procedure. ANESTHESIA: Spinal. ESTIMATED BLOOD LOSS: 500 mL. URINE OUTPUT: 250 mL clear at the end of the procedure. FLUIDS: 1800 mL lactated Ringer's solution. FINDINGS: A live female weighing 7 pounds 4 ounces, Apgars of 8 and 9. Grossly normal appearing bilateral fallopian tubes and ovaries. Multiple fibroids, too many to count of the uterus, some pedunculated, some subserosal. There are some intramural that are encountered with the uterine incision and some are submucosal as palpated on intrauterine palpation. SPECIMEN SENT: Intramural fibroid from incision line. INDICATIONS FOR PROCEDURE: This 29-year-old female is a patient who had sought care in my office. Her care was uncomplicated with the exception of multiple fibroid uterus. She made it to 38 weeks, at which point we planned for 38-week delivery due to her history of multiple uterine surgeries in the past. Risk of repeat was reviewed with the patient in detail. She was already well aware of the risk as she had been previously counseled with her first , so all of her questions were limited. We obtained the consent in the preoperative area, the patient was then taken to the operating room. OPERATIVE REPORT IN DETAIL: Once in the operating room, spinal analgesia was found to be adequate, placed in supine position with leftward tilt, prepped and draped in normal sterile fashion. A timeout was performed and anesthesia was tested. I then proceeded with making a Pfannenstiel skin incision to the previously existing scar using knife and carried it down to the underlying fascia using Bovie cautery. The fascial incision extended laterally using Bovie cautery. Superior aspect of the fascial incision was then grasped with Leila clamps, tented up and dissected off the underlying rectus muscles. The inferior aspect of the fascial incision was then grasped with Leila clamps, tented up and dissected off the underlying rectus muscles. Rectus muscle was then dissected down the midline using sharp dissection, which exposed the peritoneum, which I entered bluntly and extended using blunt traction. I then placed an Daniel ring retractor within the peritoneal incision, which offers excellent lateral sidewall retraction. I then identified the lower uterine segment, which was found to be thinned out and make a low transverse incision to the vesicouterine peritoneum and bluntly dissected off the lower uterine segment. I proceeded with myotomy until membranes were visualized, at which point I extended the uterine incision laterally and superiorly using bandage scissors. Amniotomy was then performed using Allis clamp. Clear fluid was noted within it. With gentle fundal pressure, the infant's head was elevated up the incision where it delivered through the incision. The nares and oropharynx were then bulb suctioned and nuchal cord was reduced x1. Anterior and posterior shoulders were delivered. The was then brought on to the operative field with cord doubly clamped and cut and was handed off to waiting nurses in attendance. Cord blood was collected, 3-vessel cord with intact placenta was delivered spontaneously thereafter. IV Pitocin was initiated to facilitate uterine contraction. Uterine fundus confirmed with bimanual massage. The uterus was then exteriorized and cleared of all endometrial clots and debris. I then proceeded with closing the uterine incision using 0 Vicryl suture in a running locked fashion. Second layer of imbricating 0 Monocryl was placed. Excellent hemostasis was noted after doing this. I then placed the uterus back within the pelvis. At the time of the uterine closure, I identified the fibroid, which was taken off of the uterine incision line and sent. I removed the uterine incision line fibroid. Once the uterus back within the pelvis, I copiously irrigated the pelvis using normal saline. There was no active bleeding noted from any of my dissection planes. I placed Interceed antiadhesive over my low transverse incision removing the Daniel ring retractor and then proceeded with closing the peritoneum using 3-0 Vicryl suture in running fashion. The rectus muscles were reapproximated using 3-0 Vicryl suture in interrupted fashion. The fascia was reapproximated using 0 Vicryl suture in running fashion. The subcutaneous tissue was reapproximated using 3-0 plain interrupted subcutaneous stitch and skin reapproximated using 4-0 Monocryl in a running subcuticular. Dermabond was applied to incision and sterile dressing with adhesive white tape. The patient tolerated the procedure well and was taken to recovery area in stable condition. Lap and sponge count was correct at the end of the procedure. Instrument counts correct as well. Job ID: [id number] DocumentID: [id number] Dictated Date: 02/29/2020 10:37:53 Technology Director Date: 02/29/2020 18:03:20 Dictated By: DO JANIE ZAVALA
--- NOTE | 2020-02-29 19:57 | NUR ---
Nurse at pt. bedside. Pt. states that she is about to get up to use the restroom and walk the hallways. Asks for pain meds at this time. Pain medication given and vitals taken. Pt. assessment complete. Pt. has no other questions or concerns.
[2020-02-29] MEDS: DOCUSATE SODIUM 100 MG (COLACE) CAP PO SCH (21:19)
[2020-03-01 00:10] VITALS: BP 133/85
[2020-03-01] MEDS: METOCLOPRAMIDE 10 MG (REGLAN) TAB PO SCH ×4 (00:11→18:10)
[2020-03-01] MEDS: KETOROLAC 30 MG/ML VIAL IV SCH ×2 (00:12→06:24)
[2020-03-01] MEDS: HYDROcodone/APAP 5 MG/325 MG (LORTAB) TAB PO PRN ×3 (02:16→16:56)
[2020-03-01 04:20] VITALS: BP 144/62
[2020-03-01 07:23] LABS: BASOPHILS % (AUTO) 0 % (0-10); EOSINOPHILS # (AUTO) 0.1 10^3/uL (0.0-0.3); EOSINOPHILS % (AUTO) 1 % (0-10); HEMATOCRIT 33 % (35-52); HEMOGLOBIN 10.1 g/dL (11.5-16.0); LYMPHOCYTES # (AUTO) 1.6 10^3/uL (1.0-4.0); LYMPHOCYTES % (AUTO) 15 % (12-44); MEAN CORPUSCULAR HEMOGLOBIN 25 pg (25-34); MEAN CORPUSCULAR HGB CONC 31 g/dL (32-36); MEAN CORPUSCULAR VOLUME 81 fL (80-99); MONOCYTES # (AUTO) 0.6 10^3/uL (0.0-1.0); MONOCYTES % (AUTO) 6 % (0-12); NEUTROPHILS # (AUTO) 7.9 10^3/uL (1.8-7.8); NEUTROPHILS % (AUTO) 77 % (42-75); PLATELET COUNT 222 10^3/uL (130-400); WHITE BLOOD COUNT 10.2 10^3/uL (4.3-11.0)
--- NOTE | 2020-03-01 08:05 | Postpartum Progress Note ---
Note Note Day # 1 Subjective: Patient is without complaints. Ambulating, voiding. Tolerating a regular diet without nausea or vomiting. Normal lochia. Pain is well controlled with oral pain medications. Objective: Physical Exam: General - Alert and oriented, no apparent distress Abdomen - Soft, appropriately tender to palpation, non-distended, fundus firm at umbilicus Extremities - no edema, negative Eze's bilaterally Incision- c/d/i Assessment: POD 1 RLTCS Acute blood loss anemia Plan: Routine care. Encourage breast feeding. Encourage ambulation. Ferrous sulfate supplementation. Plan for discharge tomorrow Vitals - Labs Vital Signs - I&O Vital Signs Date Time Temp Pulse Resp B/P (MAP) Pulse Ox O2 Delivery O2 Flow Rate FiO2 03/01/20 04:20 36.8 100 18 144/62 (89) 96 Room Air 03/01/20 00:10 37.2 100 18 133/85 (101) 97 Room Air 02/29/20 19:53 36.6 90 18 136/87 (103) 97 Room Air 02/29/20 15:40 37.0 84 16 129/72 (91) 96 Room Air 02/29/20 12:00 37.2 92 16 134/76 (95) 96 02/29/20 11:03 Room Air 02/29/20 11:03 36.6 18 130/101 (111) 99 Room Air 02/29/20 10:50 Room Air 02/29/20 10:45 36.4 18 135/85 (102) 99 Room Air 02/29/20 10:35 Room Air 02/29/20 10:30 36.4 18 133/97 (109) 99 Room Air 02/29/20 10:20 36.4 18 135/78 (97) 98 Room Air 02/29/20 10:20 Room Air 02/29/20 10:05 36.4 18 131/66 (87) 98 Room Air 02/29/20 10:05 Room Air I & O 03/01/20 07:00 Intake Total 4200 ml Output Total 2900 ml Balance 1300 ml Labs Laboratory Tests 03/01/20 07:13: White Blood Count 10.2, Red Blood Count 4.00, Hemoglobin 10.1L, Hematocrit 33L, Mean Corpuscular Volume 81, Mean Corpuscular Hemoglobin 25, Mean Corpuscular Hemoglobin Concent 31L, Red Cell Distribution Width 18.3H, Platelet Count 222, Mean Platelet Volume 10.0, Immature Granulocyte % (Auto) 1, Neutrophils (%) (Auto) 77H, Lymphocytes (%) (Auto) 15, Monocytes (%) (Auto) 6, Eosinophils (%) (Auto) 1, Basophils (%) (Auto) 0, Neutrophils # (Auto) 7.9H, Lymphocytes # (Auto) 1.6, Monocytes # (Auto) 0.6, Eosinophils # (Auto) 0.1, Basophils # (Auto) 0.0, Immature Granulocyte # (Auto) 0.1 OLEG RINCON DO Mar 01, 2020 08:05
[2020-03-01 09:00] VITALS: BP 133/77
--- NOTE | 2020-03-01 09:00 | NUR ---
A.M. ASSESSMENT COMPLETED. VSS. CARING FOR IN ROOM. DOING WELL.
[2020-03-01] MEDS: DOCUSATE SODIUM 100 MG (COLACE) CAP PO SCH ×3 (09:41→20:27)
--- NOTE | 2020-03-01 10:00 | NUR ---
SHOWERED WITHOUT PROBLEMS. OUT TO AMBULATE IN THE [place]. MOVES WELL.
--- NOTE | 2020-03-01 10:29 | Anesthesia-Regional Post-Op ---
Regional Patient Condition Mental Status: Alert, Oriented x3 Circulation: Same as Pre-Op Headache: Absent Sensation: Full Recovery Motor Block: Absent Post Op Complications Complications None Follow Up Care/Instructions Patient Instructions None needed. Anesthesia/Patient Condition Patient is doing well, no complaints, stable vital signs, no apparent adverse anesthesia problems. No complications reported per nursing. D/C home per [facility] Criteria: No AFIA ROSARIO PLASTIC TILE SETTER Mar 01, 2020 10:29
[2020-03-01 12:00] VITALS: BP 132/73
--- NOTE | 2020-03-01 12:00 | NUR ---
VSS. RESTING WITH EYES CLOSED WHEN ENTERED ROOM. RATES PAIN 6/10 R/T GAS PAIN. ENCOURAGED TO DO I.S. Q 2 HOURS W/A.
[2020-03-01] MEDS: IBUPROFEN 600 MG (MOTRIN) TAB PO SCH ×2 (12:12→18:10)
--- NOTE | 2020-03-01 15:30 | NUR ---
AMBULATING IN THE [place]. OFFERS NO COMPLAINTS. S.O. CARING FOR IN ROOM.
[2020-03-01 16:50] VITALS: BP 137/76
[2020-03-01] MEDS: SIMETHICONE 80 MG (MYLICON) CHEW PO PRN (17:00)
--- NOTE | 2020-03-01 18:16 | NUR ---
INFANT IN CHAIR. STATES PAIN MUCH BETTER AT THIS TIME AND SHOULDER PAIN IS GONE. S.O. AT BEDSIDE.
[2020-03-01 20:27] VITALS: BP 141/73
[2020-03-02] MEDS: IBUPROFEN 600 MG (MOTRIN) TAB PO SCH ×3 (00:03→11:51)
[2020-03-02] MEDS: METOCLOPRAMIDE 10 MG (REGLAN) TAB PO SCH ×3 (00:03→11:51)
[2020-03-02] MEDS: SIMETHICONE 80 MG (MYLICON) CHEW PO PRN ×2 (00:05→08:30)
[2020-03-02 02:15] VITALS: BP 135/69
[2020-03-02 08:30] VITALS: BP 137/71
[2020-03-02] MEDS: DOCUSATE SODIUM 100 MG (COLACE) CAP PO SCH (08:30)
--- NOTE | 2020-03-02 08:30 | NUR ---
A.M. ASSESSMENT COMPLETED. VSS. CARING FOR IN ROOM. ANXIOUS TO GO HOME. DECLINES ABDOMINAL BINDER AT THIS TIME.
--- NOTE | 2020-03-02 10:20 | NUR ---
DR. BANUELOS HERE TO SEE PT. PLAN FOR DISCHARGE.
--- NOTE | 2020-03-02 10:30 | Progress Note ---
Standard Progress Note Progress Notes/Assess & Plan Date Seen by a Provider: Mar 02, 2020 Time Seen by a Provider: 10:28 Progress/Assessment & Plan This patient is without complaint. She is ambulating, voiding, tolerating oral intake well and has good pain control. Patient is requesting discharge home. Vital Signs Date Time Temp Pulse Resp B/P (MAP) Pulse Ox O2 Delivery O2 Flow Rate FiO2 03/02/20 08:30 36.6 79 18 137/71 (93) 96 Room Air 03/02/20 02:15 36.4 74 18 135/69 (91) 98 Room Air 03/01/20 20:27 36.6 90 18 141/73 (95) 98 Room Air 03/01/20 16:50 36.5 91 18 137/76 (96) 98 Room Air 03/01/20 12:00 36.7 91 18 132/73 (92) 97 Room Air I & O 03/02/20 07:00 Intake Total 2460 ml Output Total 1450 ml Balance 1010 ml - Vital signs are stable. Patient is afebrile. Patient is pumping breastmilk - physical exam is deferred Assessment and plan postoperative day #2 status post repeat delivery doing well. Plan is for discharge home with follow-up in clinic Final Diagnosis Repeat delivery CRYSTAL BANUELOS MD Mar 02, 2020 10:30
--- NOTE | 2020-03-02 11:30 | NUR ---
DISCHARGE INSTRUCTIONS REVIEWED WITH COPY TO PT. RXS GIVEN. STATES UNDERSTANDING OF ALL DISCHARGE INSTRUCTIONS AND NEED TO F/U INSTRUCTED AND NEEDED.
[2020-03-02 12:10] VITALS: BP 137/71
--- NOTE | 2020-03-02 12:10 | NUR ---
DISMISSED FROM [facility] VIA W/C WITH IN STABLE CONDITION TO FAMILY CAR ACC BY SPOUSE AND DIAMOND WATT RN.
== END 2020-03-02 12:10 | disposition home or self-care (01) | DRG 787 ==
LOC: LDRP 06:15
PROVIDERS: ADMIT Obstetrics & Gynecology; ATTEND Obstetrics & Gynecology
PROC: 0UB90ZZ Excision of Uterus, Open Approach (ICD-10-PCS; 2020-02-29)
PROC: 10D00Z1 Extraction of Products of Conception, Low, Open Approach (ICD-10-PCS; principal; 2020-02-29 08:51)
DX: O34.211 Maternal care for low transverse scar from previous cesarean delivery (principal); D62 Acute posthemorrhagic anemia; O34.13 Maternal care for benign tumor of corpus uteri, third trimester; D25.1 Intramural leiomyoma of uterus; D25.0 Submucous leiomyoma of uterus; D25.2 Subserosal leiomyoma of uterus; O90.81 Anemia of the puerperium; O69.81X0 Labor and delivery complicated by cord around neck, without compression, not applicable or unspecified; Z37.0 Single live birth; Z3A.38 38 weeks gestation of pregnancy
CPT/HCPCS: 36415; 85025; 86850; 86900; 86901; 94664

== ENCOUNTER → 2020-09-24 | Outpatient (CLI) | payer BC ==
[~2020-09-24] MED LIST changes: +IBUP-844 PO
--- NOTE | 2020-09-24 17:45 | Diagnostic Imaging Report ---
PROCEDURE: Pelvic comp/transvaginal sonogram. TECHNIQUE: Complete transabdominal and transvaginal pelvic ultrasound was performed. In addition, limited pelvic Doppler was performed. INDICATION: Fibroids, follow-up. Correlation is made with prior exam from 03/19/2019. Uterus is anteverted measuring 9.6 x 5.5 x 6.9 cm. Right-sided calcified uterine fibroid measures 1.4 x 1.1 x 1.1 cm compared with 1.6 x 1.6 x 1.9 cm. A fibroid on the left measures 2.6 x 2.7 x 2.4 cm compared with 3.7 x 3.3 x 3.1 cm. Endometrium is 9 mm in thickness. Right ovary measures 4.1 x 2.6 x 2.0 cm and the left ovary measures 3.5 x 2.3 x 3.5 cm. Ovaries contain small follicles. The right ovary was difficult to visualize transvaginally. Left ovary does show normal blood flow. No adnexal mass or free fluid is detected. IMPRESSION: Slight decrease in size of uterine fibroids when compared with examination from 03/19/2019. Dictated by: Dictated on workstation # [id number]
== END ==
LOC: RAD 14:15
PROVIDERS: ATTEND Obstetrics & Gynecology
DX: D25.1 Intramural leiomyoma of uterus (principal)
CPT/HCPCS: 76830; 76856

== ENCOUNTER 2020-10-03 05:40 | Outpatient (CLI) | payer BC ==
[~2020-10-03] VITALS: Ht 165.1 cm; Wt 116.8 kg
[2020-10-03] MEDS ORDERED: MULT-141 PO (10:03)
[2020-10-06] MEDS ORDERED: DCS100C PO (11:10)
[2020-10-06] MEDS ORDERED: SMT80CT PO (11:10)
[2020-10-06] MEDS ORDERED: IBUP-844 PO (11:10)
[2020-10-06] MEDS ORDERED: HYDR-34 PO (11:10)
== END 2020-10-03 10:04 | disposition home or self-care (01) ==
LOC: PREOP 05:40
PROVIDERS: ATTEND Obstetrics & Gynecology
DX: Z01.818 Encounter for other preprocedural examination (principal)

== ENCOUNTER 2020-10-06 07:48 | Day surgery (SDC) | payer BC ==
[~2020-10-06] VITALS: Ht 165.1 cm; Wt 116.8 kg
[2020-10-06] VITALS (12 sets, daily range): BP systolic 118–136; BP diastolic 57–84
[~2020-10-06 07:48] MED LIST changes: +MULT-141 PO
[2020-10-06] MEDS ORDERED: metroNIDAZOLE 500MG/100ML IVPB 100 ML IV ONE (08:15)
[2020-10-06] MEDS ORDERED: ceFAZolin 2 GM IV Premixed 50 ML IV ONE (08:15)
[2020-10-06 09:49] LABS: BASOPHILS # (AUTO) 0.1 10^3/uL (0.0-0.1); BASOPHILS % (AUTO) 1 % (0-10); EOSINOPHILS # (AUTO) 0.1 10^3/uL (0.0-0.3); EOSINOPHILS % (AUTO) 2 % (0-10); HEMATOCRIT 38 % (35-52); HEMOGLOBIN 11.9 g/dL (11.5-16.0); LYMPHOCYTES # (AUTO) 2.2 10^3/uL (1.0-4.0); LYMPHOCYTES % (AUTO) 38 % (12-44); MEAN CORPUSCULAR HEMOGLOBIN 24 pg (25-34); MEAN CORPUSCULAR HGB CONC 32 g/dL (32-36); MEAN CORPUSCULAR VOLUME 75 fL (80-99); MEAN PLATELET VOLUME 9.3 fL (9.0-12.2); MONOCYTES # (AUTO) 0.4 10^3/uL (0.0-1.0); MONOCYTES % (AUTO) 7 % (0-12); NEUTROPHILS % (AUTO) 52 % (42-75); PLATELET COUNT 351 10^3/uL (130-400); WHITE BLOOD COUNT 5.8 10^3/uL (4.3-11.0)
[2020-10-06] MEDS: LACTATED RINGERS 1,000 ML IV PRN ×2 (09:58→11:49)
[2020-10-06] MEDS ORDERED: BUPIVACAINE 0.25% 30 ML (SENSORCAINE) VIAL ONE (10:50)
[2020-10-06] MEDS ORDERED: GLYCOPYRROLATE 0.2 MG/ML (ROBINUL) 2 ML VIAL ONE (10:55)
[2020-10-06] MEDS ORDERED: NEOSTIGMINE 3 MG/3 ML VIAL ONE (10:55)
[2020-10-06] MEDS ORDERED: fentaNYL INJ 100 MCG/2 ML AMP ONE (10:55)
[2020-10-06] MEDS ORDERED: ONDANSETRON 4 MG/2 ML (SDV) Z0FRAN ONE (10:55)
[2020-10-06] MEDS ORDERED: LIDOCAINE PF 2% 5 ML (XYLOCAINE) VIAL ONE (10:55)
[2020-10-06] MEDS ORDERED: ROCURONIUM 10 MG/ML 5 ML SYRINGE IV ONE (10:55)
[2020-10-06] MEDS ORDERED: proPOfol 200 MG/20 ML (DIPRIVAN) VIAL IV ONE (10:55)
[2020-10-06] MEDS ORDERED: MIDAZOLAM 2 MG/2 ML (VERSED) VIAL ONE (10:55)
--- NOTE | 2020-10-06 11:06 | Progress Note-Pre Operative ---
Pre-Operative Progress Note H&P Reviewed The H&P was reviewed, patient examined and no changes noted. Date Seen by Provider: Oct 06, 2020 Time Seen by Provider: 11:00 Date H&P Reviewed: Oct 06, 2020 Time H&P Reviewed: 11:00 Pre-Operative Diagnosis: AUB, Fibroid uterus, CPP, Chronic blood loss anemia OLEG RINCON DO Oct 06, 2020 11:06
--- NOTE | 2020-10-06 11:08 | Discharge Inst-Women's Service ---
Discharge Inst-Women's Serv Depart Medication/Instructions New, Converted or Re-Newed RX: RX on Chart Problems Reviewed?: Yes Consults/Follow Up Additional Follow Up: Yes Orders/Referrals Dr. Hassan in 7-10 days and in 8 weeks Activity Activity: Activity as Tolerated Driving Instructions: No Driving for 1 Week NO SMOKING: NO SMOKING Nothing Inside Vagina: No Douching, No [place], No Tampons Diet Discharge Diet: No Restrictions Symptoms to Report to : Bleeding Excessive, Pain Increased, Fever Over 101 Degrees F, Vaginal Bleeding Increase, Questions/Concerns For Any Problems or Questions: Contact Your Physician Skin/Wound Care Infection Signs and Symptoms: Increased Redness, Foul Odor of Wound, Increased Drainage, Skin Itchy or Has a Rash, Increased Swelling, Temperature Above 101 F Operative Area Clean and Dry: Keep Incision Clean/Dry Stitches/Kellee/Dermabond: Dermabond, Care of Stitches Bathing Instructions: OLEG Chavez DO Oct 06, 2020 11:08
[2020-10-06] MEDS ORDERED: HYDR-34 PO (11:10)
[2020-10-06] MEDS ORDERED: SMT80CT PO (11:10)
[2020-10-06] MEDS ORDERED: IBUP-844 PO (11:10)
[2020-10-06] MEDS ORDERED: DCS100C PO (11:10)
[2020-10-06] MEDS ORDERED: ANTACID SUSP 30 ML UDC (MYLANTA) PO PRN (11:15)
[2020-10-06] MEDS ORDERED: CHLORASEPTIC LOZENGE MM PRN (11:15)
[2020-10-06] MEDS ORDERED: ONDANSETRON 4 MG/2 ML (SDV) Z0FRAN IV PRN (11:15)
[2020-10-06] MEDS ORDERED: LACTATED RINGERS 1,000 ML IV SCH (11:15)
[2020-10-06] MEDS ORDERED: DOCUSATE SODIUM 100 MG (COLACE) CAP PO PRN (11:15)
[2020-10-06] MEDS ORDERED: ZOLPIDEM 5 MG (AMBIEN) TAB PO PRN (11:15)
[2020-10-06] MEDS ORDERED: SIMETHICONE 80 MG (MYLICON) CHEW PO PRN (11:15)
[2020-10-06] MEDS ORDERED: HYDROcodone/APAP 7.5 MG/325 MG (LORTAB, LORCET PLUS) TABLET PO PRN (11:15)
[2020-10-06] MEDS ORDERED: KETOROLAC 30 MG/ML VIAL IV PRN (11:15)
[2020-10-06] MEDS ORDERED: HYDROmorphone 2 MG/ML VIAL (DILAUDID) ONE (12:14)
[2020-10-06] MEDS ORDERED: SEVOFLURANE (ULTANE) 15 ML INHAL SOLN ONE (12:19)
[2020-10-06] MEDS ORDERED: ONDANSETRON 4 MG/2 ML (SDV) Z0FRAN IVP PRN (12:45)
[2020-10-06] MEDS ORDERED: HYDROmorphone 2 MG/ML VIAL (DILAUDID) IV ONE (12:45)
[2020-10-06] MEDS ORDERED: KETOROLAC 30 MG/ML VIAL ONE (12:46)
--- NOTE | 2020-10-06 16:43 | OPERATIVE REPORT ---
DATE OF SERVICE: PREOPERATIVE DIAGNOSES: 1. A 30-year-old female with fibroid uterus. 2. Chronic pelvic pain. 3. Menorrhagia. 4. Dyspareunia. POSTOPERATIVE DIAGNOSES: 1. A 30-year-old female with fibroid uterus. 2. Chronic pelvic pain. 3. Menorrhagia. 4. Dyspareunia. PROCEDURE: Robotic-assisted total laparoscopic hysterectomy with bilateral salpingectomy. SURGEON: Derek Hassan DO ANESTHESIA: General endotracheal. ESTIMATED BLOOD LOSS: Minimal. URINE OUTPUT: 300 mL clear at the end of the procedure. FLUIDS: 1500 mL lactated Ringer's solution. FINDINGS: A bulky uterus consistent with multiple intramural, submucosal and subserosal fibroids, grossly normal appearing bilateral ovaries. Mild adhesions from prior surgeries. SPECIMEN SENT: Uterus, bilateral fallopian tubes. INDICATIONS FOR PROCEDURE: This 30-year-old female is a patient who had consulted my office due to ongoing issues with heavy heavy periods. The patient was becoming frustrated as she had been diagnosed with anemia in the past due to her heavy periods that she underwent a myomectomy in the past and has had two children since then. Now, she is done having children and she wished to proceed with more definitive measures for dealing with this bleeding and recurrent fibroid issue. I discussed with the patient more conservative measures; however, she was interested in hysterectomy. Risks of the procedure were discussed with the patient in detail including risk of bleeding, infection, damage to surrounding structures including, but not limited to bowel, bladder, ureter, kidneys, possible need for operation, postoperative complications that may occur, risk from anesthesia, possible need for reoperation and even . After everything was discussed with the patient in detail, consent was obtained in the preoperative area, the patient was taken to the operating room. OPERATIVE REPORT IN DETAIL: Once in the operating room, general anesthesia was found to be adequate. She was placed in dorsal lithotomy position, prepped and draped in normal sterile fashion. Timeout was performed. A Jordan catheter was placed using sterile technique. A weighted speculum inserted to the patient's vagina. Right angle retractor was used to visualize the cervix. It was grasped at 12 o'clock position using a long Allis clamp and 0 Vicryl suture was then placed in anterior lip of cervix and used as my retraction. Allis clamp was removed. I then gently sound the uterine cavity, depth was found to be 8 cm. I selected a 3.5 cm colpotomy ring and an 8 cm uterine manipulator tip. I sent with the Fide and placed the Fide within the uterus deploying the balloon. I advanced the colpotomy ring around the vaginal fornix. I removed all the instruments from the patient's vagina, performed change of gloves and took my attention to the abdomen where infraumbilically I infiltrated this area using 0.25% Marcaine to make an 8 mm incision with a knife and directed Veress needle through the incision until intraperitoneal placement was confirmed using saline drop test; however, opening pressure was not confirmed. I then removed the Veress needle in the left upper quadrant midclavicular line subcostally 2 fingerbreadths. I introduced the Veress needle through the skin at this location until intraperitoneal placement confirmed using saline drop test. I then proceeded with insufflation using CO2 gas. Opening pressure of 5 mmHg was noted, I proceeded to max pressure of 15 mmHg, at which point I placed an infraumbilical trocar. Once I have accessed the peritoneum, I am able to confirm intraperitoneal placement using the da Bentley laparoscope and no evidence of damage from entry site. I am also able to identify the Veress needle in the left upper quadrant. There was no evidence of damage upon its entry site as well. The Veress needle was then removed. I then had the patient placed in steep Trendelenburg. I am able to visualize all of the pelvic anatomy as defined in my findings above. I then placed two lateral trocars approximately 10 cm lateral to my infraumbilical trocar. Once both these trocars were in place, I bring in the da Bentley robot and docked in appropriate fashion placing the vessel sealer in the left hand and monopolar girish in the right hand. I performed the following dissection bilaterally. I started the uteroovarian ligament, bipolar cauterized, sealed and transected this using the vessel sealer. I then created a window in the mesosalpinx and took this dissection using monopolar girish down the mesosalpinx amputating the fallopian tube from its surrounding blood supply. I then grasped the round ligament, bipolar cauterized, sealed and transected using the vessel sealer. I then grasped the entire broad ligament, which I sealed and transect using vessel sealer down to the level of the lower uterine segment, at which point I the anterior and posterior leaflets of the broad ligament. Anterior leaflet dissection was taken around to the anterior vaginal fornix. Posterior leaflets was taken around the posterior vaginal fornix. This allows me to skeletonize the uterine vessels laterally, which I bipolar cauterized, sealed and transected using the vessel sealer. I then created a colpotomy at 12 o'clock position using monopolar girish and circumferentially took this around the vaginal fornix amputating the cervix away from the vagina. The entire specimen was then removed through the vagina. I then closed the lateral vaginal apices of the vaginal cuff using 2-0 Vicryl suture in a [id number] fashion colposuspending the uterosacral ligaments. I then closed the remainder of the vaginal cuff using 2-0 V-Loc in a running fashion, after which no bleeding noted from any of my dissection planes. I then undocked the da Bentley robot and proceeded with remainder of the case laparoscopically. I copiously irrigated the pelvis using normal saline. Once again, there was no active bleeding noted from any of my dissection planes. I placed Surgiflo hemostatic agent over all my planes of dissection to ensure excellent postoperative hemostasis. I then had the patient taken out of steep Trendelenburg where I removed the lateral trocars under direct visualization of the laparoscope and infraumbilical trocars left in place to release insufflation and to introduce 10 mL of 0.25% Marcaine into the peritoneal cavity for postoperative pain management. I then removed this trocar site as well. The skin was then reapproximated using 4-0 Monocryl in interrupted subcuticular stitches. Dermabond was applied to the incisions and Band-Aids were placed over the incisions as well. The patient tolerated the procedure well and sent to recovery area in stable condition. Lap and sponge counts were correct at the end of the procedure. Instrument counts correct as well. Two grams of Ancef, 500 mg of Flagyl were given preoperatively for infection prophylaxis. A Jordan catheter was left in place at the end of procedure. Job ID: [id number] DocumentID: [id number] Dictated Date: 10/06/2020 12:37:55 Cigarette Inspector Date: 10/06/2020 16:42:51 Dictated By: DO JANIE ZAVALA
[2020-10-07] MEDS ORDERED: IBUPROFEN 600 MG (MOTRIN) TAB PO SCH (03:45)
--- NOTE | 2020-10-07 14:13 | Anesthesia-General Post-Op ---
General Patient Condition Mental Status/LOC: Same as Preop Cardiovascular: Satisfactory Nausea/Vomiting: Absent Respiratory: Satisfactory Pain: Controlled Complications: Absent Post Op Complications Complications None Follow Up Care/Instructions Patient Instructions None needed. Anesthesia/Patient Condition Patient Condition Patient is doing well, no complaints, stable vital signs, no apparent adverse anesthesia problems. No complications reported per nursing. MARIAMA MARQUEZ CRNA Oct 07, 2020 14:13
== END 2020-10-06 18:50 | disposition home or self-care (01) ==
LOC: SDC 07:48 → LDRP 13:33 → SDC 18:50
PROVIDERS: ATTEND Obstetrics & Gynecology
DX: D25.1 Intramural leiomyoma of uterus (principal); D25.2 Subserosal leiomyoma of uterus; N80.0 Endometriosis of uterus; Z79.899 Other long term (current) drug therapy; G89.29 Other chronic pain; N92.0 Excessive and frequent menstruation with regular cycle; N94.10 Unspecified dyspareunia; D50.0 Iron deficiency anemia secondary to blood loss (chronic); N94.5 Secondary dysmenorrhea; Z68.41 Body mass index [BMI] 40.0-44.9, adult; D25.0 Submucous leiomyoma of uterus
CPT/HCPCS: 36415; 84703; 85025; 86850; 86900; 86901; 87081; 88307; 94664